=== PATIENT | male | born 1985 | race African-American/Black ===

== ENCOUNTER 2017-06-16 18:43 | Emergency (ER) | payer OTHER ==
--- NOTE | 2017-06-16 19:11 | PDOC ---
Rapid Medical Evaluation Chief Complaint: Cold Symptoms Time Seen by Provider: 06/16/17 19:02 Medical Evaluation: Allergies Allergy/AdvReac Type Severity Reaction Status Date / Time No Known Allergies Allergy Verified 06/16/17 18:52 06/16/17 19:02 31yo Male patient presents to ED c/o headache, cold symptoms, body aches, weakness for past few days. Patient reports taking NyQuil for symptomatic relief. Patient reports taste bud are "off."
[2017-06-16 19:20] VITALS: BP 149/93; PULSE 91; TEMP 100.4; BMI 43.8
[2017-06-16] MEDS ORDERED: ACETAMINOPHEN 500 MG TABLET (FP) PO ONE (19:35)
[2017-06-16] MEDS ORDERED: ACETAMINOPHEN 500 MG TABLET (FP) ONE (19:41)
--- NOTE | 2017-06-16 19:59 | PDOC ---
History of Present Illness - General Chief Complaint: Cold Symptoms Stated Complaint: FATIGUE Time Seen by Provider: 06/16/17 19:30 - History of Present Illness Initial Comments: 06/16/17 19:58 CHIEF COMPLAINT: flu symptoms HISTORY OF PRESENT ILLNESS: 31 yo M presents to [facility] with fatigue, headache, body aches, cough, and runny nose since yesterday morning. Patient states he has taken Nyquil. He denies any vomiting or diarrhea. No recent travel or sick contacts. PAST MEDICAL HISTORY: Denies past medical history FAMILY HISTORY: Denies SOCIAL HISTORY: Denies tobacco, alcohol, illicit drug use. SURGICAL HISTORY: Denies ALLERGIES: No known drug allergies REVIEW OF SYSTEMS as per HPI PHYSICAL EXAM General Appearance: Well-appearing, appropriately dressed. No apparent distress. HEENT: Congestion, rhinorrhea, dry cough. EOMI, PERRLA. No conjunctival pallor. No photophobia, scleral icterus. Respiratory/Chest: Lungs CTAB. Cardiovascular: RRR. S1, S2. Gastrointestinal/Abdominal: Normal bowel sounds. Abdomen soft, non-distended. No tenderness or rebound tenderness. No organomegaly, pulsatile mass, guarding , hernia, hepatomegaly, splenomegaly. Musculoskeletal/Extremities: Normal inspection. FROM of all extremities, normal capillary refill. Pelvis Stable. No CVA tenderness. No tenderness to extremities, pedal edema, swelling, erythema or deformity. Integumentary: Appropriate color, dry, warm. 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 Fully oriented, alert. Appropriate mood/affect. Motor strength 5/5. No appreciable EOM palsy, facial droop or sensory deficit. Past History - Past Medical History Allergies/Adverse Reactions: Allergies Allergy/AdvReac Type Severity Reaction Status Date / Time No Known Allergies Allergy Verified 06/16/17 18:52 Home Medications: Ambulatory Orders Dextromethorphan HBr [Tussin Cough] 15 mg PO QID PRN #20 capsule 06/16/17 Ibuprofen 600 mg PO QID PRN #28 tablet 06/16/17 Oseltamivir Phosphate [Tamiflu] 75 mg PO BID #10 capsule 06/16/17 - Suicide/Smoking/Psychosocial Hx Smoking History: Never smoked Hx Alcohol Use: No Drug/Substance Use Hx: No *Physical Exam - Vital Signs Last Vital Signs Temp Pulse Resp BP Pulse Ox 100.4 F H 91 H 20 149/93 97 06/16/17 19:04 06/16/17 19:04 06/16/17 19:04 06/16/17 19:04 06/16/17 19:04 ED Treatment Course - Medications Given in the ED: ED Medications Discontinued Medications Generic Name Dose Route Start Last Admin Trade Name Yuniorq PRN Reason Stop Dose Admin Acetaminophen 500 mg 06/16/17 19:35 06/16/17 19:42 Tylenol - PO 06/16/17 19:36 500 mg ONCE ONE Administration Medical Decision Making - Medical Decision Making 06/16/17 20:39 31 yo M presents to [facility] with fatigue, headache, body aches, cough, and runny nose since yesterday morning. -flu swab patient is flu A positive. tamiflu sent to pharm Advised patient to take medication as prescribed and follow up with primary care doctor if symptoms persist. Advised patient of signs and symptoms for return to ED. Patient verbalized understanding and agrees to plan. *DC/Admit/Observation/Transfer Diagnosis at time of Disposition: Influenza A - Discharge Dispostion Disposition: HOME Condition at time of disposition: Stable Admit: No - Prescriptions Prescriptions: Dextromethorphan HBr [Tussin Cough] 15 mg PO QID PRN #20 capsule PRN Reason: Cough Ibuprofen 600 mg PO QID PRN #28 tablet PRN Reason: Pain Or Fever Oseltamivir Phosphate [Tamiflu] 75 mg PO BID #10 capsule - Referrals - Patient Instructions Printed Discharge Instructions: DI for Influenza -- Adult Additional Instructions: Please follow up with your primary care doctor next week if symptoms persist. If you develop any fever unrelieved by Motrin or Tylenol, persistent vomiting, diarrhea, or any new or worsening symptoms, please return to the ER. - Post Discharge Activity
== END 2017-06-16 20:43 | disposition home or self-care (01) ==
LOC: JERFT 18:43
DX: J09.X2 Influenza due to identified novel influenza A virus with other respiratory manifestations (principal)
CPT/HCPCS: 87070; 87430; 87804; 99281-25